=== PATIENT | female | born 1990 | race Two or more races ===

== ENCOUNTER 2016-09-06 23:40 | Emergency (ER) | payer OTHER ==
[~2016-09-06] VITALS: Ht 160 cm; Wt 41.5 kg
[~2016-09-06 23:40] MED LIST: BEN25 PO; HC1C30 TOP
[2016-09-07 00:23] VITALS: Ht 160 cm; Wt 41.5 kg
[2016-09-07] MEDS ORDERED: ONDANSETRON (ODT) 4 MG TAB ODT STA (02:44)
[2016-09-07] MEDS ORDERED: ACETAMINOPHEN 325 MG TAB PO ONE (03:00)
[2016-09-07 03:01] LABS: ADD UMIC YES; UR BILIRUBIN (Dip) NEGATIVE (NEGATIVE); UR BLOOD (Dip) TRACE (NEGATIVE); UR CLARITY CLEAR (CLEAR); UR COLOR LT. YELLOW (YELLOW); UR GLUCOSE (Dip) NEGATIVE (NEGATIVE); UR KETONES (Dip) 15 (NEGATIVE); UR LEUKOCYTE ESTERASE (Dip) NEGATIVE (NEGATIVE); UR NITRITE (Dip) NEGATIVE (NEGATIVE); UR TOTAL PROTEIN (Dip) NEGATIVE (NEGATIVE); UR UROBILINOGEN (Dip) 0.2 E.U./dL (0.1-1.0)
[2016-09-07 03:08] LABS: UR BACTERIA FEW; UR SQUAMOUS EPITHELIAL CELL FEW; URINE RBCS 0-2 /HPF (0)
[2016-09-07] MEDS ORDERED: ONDA4TAB14 PO (03:47)
--- NOTE | 2016-09-07 03:47 | ERD ---
ER Documentation Chief Complaint Date/Time DATE: 09/07/16 TIME: 03:42 Chief Complaint GEN WEAKNESS, " SHAKY,BODY ACHES, UPPER ARM HEAVY", DIZZY, NAUSEA HPI This 26-year-old female presents to the emergency department today for headache , dizziness, and cold sweats. Patient reports diarrhea, denies fever, reports using DayQuil and NyQuil for symptomatic relief with little relief of symptoms. Patient states she has not been able to tolerate much food but is able to drink liquids. Patient denies shortness of breath, cough, sore throat or fever ROS All systems reviewed and are negative except as per history of present illness. Medications Home Meds Active Scripts Ondansetron (Ondansetron Odt) 4 Mg Tab.rapdis, 4 MG PO Q6H Y for NAUSEA AND/OR VOMITING, #10 TAB Prov:AFSANEH,REBECCA 09/07/16 Hydrocortisone* Topical (Hydrocortisone* Topical) 1%-28.35 Gm Cream..g., 1 APPLIC TOP Q6 Y for ITCHING, #1 TUB Prov:LEONARDA CHATTERJEE PA-C 01/12/16 Diphenhydramine Hcl* (Benadryl*) 25 Mg Cap, 25 MG PO Q6, #30 CAP Prov:LEONARDA CHATTERJEE PA-C 01/12/16 Allergies Allergies: Coded Allergies: No Known Drug Allergy (Verified Allergy, Unknown, 01/12/16) PMhx/Soc History of Surgery: No Anesthesia Reaction: No Hx Neurological Disorder: No Hx Respiratory Disorders: No Hx Cardiac Disorders: No Hx Psychiatric Problems: No Hx Miscellaneous Medical Probl: No Hx Alcohol Use: Yes (SOCIAL ) Hx Substance Use: Yes (MARIJUANA ) Hx Tobacco Use: No Smoking Status: Never smoker Physical Exam Vitals Vital Signs Date Time Temp Pulse Resp B/P Pulse Ox O2 Delivery O2 Flow Rate FiO2 09/07/16 03:52 97.4 65 18 130/82 100 09/07/16 00:23 97.9 81 18 132/85 100 Vitals stable, triage notes reviewed Physical Exam Const: Thin/ no acute distress Head: Atraumatic Eyes: Normal Conjunctiva PERRLA, EOMI ENT: Normal External Ears, Nose and Mouth, mucous membranes moist Neck: Resp: Cardio: Abd: Soft, non tender, non distended. No bony point tenderness Skin: Back: Ext: Neur: Awake and alert Psych: Normal Mood and Affect Results 24 hrs Laboratory Tests Test 09/07/16 02:51 Urine Color LT. YELLOW Urine Clarity CLEAR Urine pH 5.5 Urine Specific [place] 1.020 Urine Ketones 15 Urine Nitrite NEGATIVE Urine Bilirubin NEGATIVE Urine Urobilinogen 0.2 E.U./dL Urine Leukocyte Esterase NEGATIVE Urine Microscopic RBC 0-2/HPF Urine Microscopic WBC 0-2/HPF Urine Squamous Epithelial Cells FEW Urine Bacteria FEW Urine Hemoglobin TRACE Urine Glucose NEGATIVE% Urine Total Protein NEGATIVE Current Medications Medications (Trade) Dose Ordered Sig/Bryan Route PRN Reason Start Time Stop Time Status Last Admin Dose Admin Ondansetron HCl (Zofran Odt) 4 mg ONCE STAT ODT 09/07/16 02:44 09/07/16 02:47 DC 09/07/16 02:51 Acetaminophen (Tylenol Tab) 650 mg ONCE ONCE PO 09/07/16 03:00 09/07/16 03:01 DC 09/07/16 02:51 Urinalysis negative for any evidence of infection. Trace microscopic hematuria and bacteria without leukocytosis or nitrate Procedures/MDM This pleasant 26-year-old female presents to the emergency department for generalized weakness dizziness fatigue, reports sensation of feeling shaky, patient has not been able to tolerate solid foods but has been able to continue to drink liquids. Cardiac arrhythmia, pneumonia or bacterial process is not suspected. Viral syndrome, gastritis is suspected patient treated Zofran, Tylenol, and is able to pass a p.o. challenge in emergency department prior to discharge. Patient will be discharged home with Zofran, clear liquid diet advance as tolerated, rest, fluids, return to emergency department for worsening of symptoms, fever, shortness of breath, abdominal pain. I feel the patient is stable for discharge at this time with outpatient management and follow-up by primary care physician. I have discussed results, examination findings, the treatment plan with the patient and family present prior to discharge. Indications for emergent reevaluation, side effects of medication were also discussed. All questions were answered. Patient verbalizes understanding and agrees with plan of care. Departure Diagnosis: Primary Impression: Viral syndrome Condition: Good Patient Instructions: Viral Syndrome (Adult) Additional Instructions: Thank you for for coming to [facility] for your care today. Please ask your nurse or provider if you have questions about your care today and do not leave until all your questions have been answered. Please use any medications given as directed and follow-up with your doctor (or the doctor you were referred to) in the next 2-3 days. If you do not have a primary care doctor you may follow up at the [facility] (listed below). You may also use motrin and tylenol as needed for fever and/or pain unless instructed otherwise by your provider or nurse. Indications for more urgent follow-up have been discussed, but you may return to the Emergency Department at ANY time for any worrisome or worsening symptoms. If you have abdominal pain, please know that no test or exam you received is perfect and you should follow up within 8 hours for continued pain. If you had any imaging studies today, such as an X-Ray or CT Scan, these studies will be reviewed later by a radiologist. You will be called if there are important findings that were not identified today, so make sure the contact information you provided at registration is correct. If you received any narcotic pain control medicine today, such as Vicodin, Morphine or Dilaudid, your coordination and judgment may be affected for a number of hours. Please do not drive or operate heavy machinery, and you may want someone to assist you at home. If you were given a prescription for narcotic medication, be aware that it is very addictive- use sparingly and only if necessary. REBECCA SHELBY Sep 07, 2016 03:47
[2016-09-07 03:52] VITALS: BP 130/82; PULSE 65; RESP 18; TEMP 97.4
== END 2016-09-07 03:57 | disposition home or self-care (01) ==
LOC: FTE 23:40
DX: B34.9 Viral infection, unspecified (principal); R11.0 Nausea
CPT/HCPCS: 81001; Z7502; Z7610; 99283

== ENCOUNTER 2017-04-04 17:08 | Emergency (ER) | END 2017-04-04 21:48 | disposition home or self-care (01) ==

== ENCOUNTER 2017-11-08 18:53 | Emergency (ER) | END 2017-11-08 21:17 | disposition home or self-care (01) ==